=== PATIENT | female | born 1985 | race African-American/Black ===

== ENCOUNTER 2020-10-30 11:26 | Emergency (ER) | payer BC ==
[~2020-10-30] VITALS: Ht 157.5 cm; Wt 63.5 kg
--- NOTE | 2020-10-30 11:45 | NUR ---
at bedside for assessment
[2020-10-30 11:57] LABS: *URINE HCG, QUAL POSITIVE (NEGATIVE)
[2020-10-30 11:58] LABS: *BILIRUBIN,URIN NEGATIVE (NEGATIVE); *BLOOD, URINE 3+ (NEGATIVE); *CLARITY,URINE CLOUDY (CLEAR); *COLOR,URINE DARK YELLOW (YELLOW); *KETONES,URINE NEGATIVE (NEGATIVE); LEUKOCYTE ESTERASE ,URINE NEGATIVE (NEGATIVE); NITRITE, URINE NEGATIVE (NEGATIVE); PH,URINE 8.5 (5.0-8.0); UGLUCOSE NEGATIVE (NEGATIVE)
[2020-10-30 12:17] LABS: BASOPHILS % (AUTO) 0.7 % (0.0-2.0); EOSINOPHILS # (AUTO) 0.2 K/uL (0.0-0.7); EOSINOPHILS % (AUTO) 3.4 % (0.0-7.0); HEMATOCRIT 38.6 % (31.2-41.9); HEMOGLOBIN 13.1 g/dL (10.9-14.3); LYMPHOCYTES # (AUTO) 1.4 K/uL (20.0-40.0); LYMPHOCYTES % (AUTO) 28.3 % (20.5-51.5); MEAN CORPUSCULAR HEMOGLOBIN 30.1 uug (24.7-32.8); MEAN CORPUSCULAR HGB CONC 34 g/dL (32.3-35.6); MEAN CORPUSCULAR VOLUME 88.6 fL (75.5-95.3); MONOCYTES # (AUTO) 0.4 K/uL (2.0-10.0); MONOCYTES % (AUTO) 8.3 % (0.0-11.0); NEUTROPHILS % (AUTO) 59.3 % (38.5-71.5); PLATELET COUNT (AUTO) 246 K/uL (179-408); RED BLOOD CELL COUNT(AUTO) 4.36 MIL/uL (3.63-4.92)
[2020-10-30 12:23] LABS: CREATININE 0.8 mg/dL (0.6-1.3); POTASSIUM 4.1 mmol/L (3.5-5.1)
[2020-10-30 12:29] LABS: BILIRUBIN,DIRECT 0.2 mg/dL (0.0-0.2); BILIRUBIN,TOTAL 0.6 mg/dL (0.2-1.0)
--- NOTE | 2020-10-30 12:30 | NUR ---
Vaginal exam preformed by MD Cabrera for vaginal bleeding
--- NOTE | 2020-10-30 13:48 | NUR ---
GHOGAM given at this time, right deltoid IM injection
--- NOTE | 2020-10-30 14:35 | NUR ---
Patient discharged to home in stable condition. Able to ambulate with steady gait, no signs of acute distress. Written and verbal after care instructions given. Patient verbalizes understanding of instructions. Stressed follow up or return to ER for worsening s/s.
[2020-10-30 14:52] LABS: RBC,URINE TNTC /HPF (0-3)
[2020-10-30 14:53] LABS: BACTERIA,URINE FEW /HPF (NONE SEEN); SQUAMOUS EPITHELIAL CELL,UR FEW /HPF (NONE SEEN)
[2020-10-30 15:28] VITALS: BP 120/76
== END 2020-10-30 14:35 | disposition home or self-care (01) ==
LOC: ER 11:26
DX: O20.0 Threatened abortion (principal); Z3A.00 Weeks of gestation of pregnancy not specified
CPT/HCPCS: 36415; 76856; 80048; 80076; 81001; 84702; 84703; 85025; 86850; 86900; 86901; 96372; 99284; J2790; A4663